=== PATIENT | female | born 1980 | race Hispanic/Latino ===

== ENCOUNTER 2025-04-14 21:47 | Emergency (ER) | payer BC ==
[~2025-04-14] VITALS: Ht 162.6 cm; Wt 85.3 kg
--- NOTE | 2025-04-14 21:50 | NUR ---
UA CUP PROVIDED
--- NOTE | 2025-04-14 22:16 | ERN ---
ED Note History of Present Illness Stated Complaint: RT LOWER ABD PAIN, N/V Chief Complaint: Abdominal Pain Time Seen by MD: 21:53 Time Seen by Midlevel: 21:53 Dictation: The patient is a 45-year-old female with a history of , abdominal plasty who presents to the emergency department with complaints of right lower abdominal pain associated with nausea nonbloody vomiting onset 7:00 p.m.. Patient denies any diarrhea, constipation, urinary discomfort, fevers. Allergies: Coded Allergies: No Known Drug Allergies (Unverified Allergy, Unknown, 04/14/25) Past Medical History Past Medical History: No Pertinent History Surgical History: Other, Surgical History Other: ABD PLASTY LMP: Mar 31, 2025 RN Note Reviewed/Agreed w/PFSH: Yes Review of System Dictation Constitutional: Negative for fever,chills, and weight loss Eyes: Negative for injury, pain,redness, and discharge ENT: Negative for injury,pain or swelling Cardiovascular: Negative for chest pain, palpitations, and edema Respiratory: Negative for shortness of breath, cough, and wheezing, Abdomen/GI: Negative for diarrhea, and constipation positive for abdominal pain, nausea, vomiting Back: Negative for injury and pain : Negative for injury, bleeding and discharge MS/Extremity: Negative for injury and deformity Skin: Negative for rash, and discoloration Neuro: Negative for headache, weakness, numbness, tingling, and seizure Psych: Negative for suicide ideation, homicidal ideation, and hallucinations Initial Vital Sign VS Vital Signs Date Time Temp Pulse Resp B/P (MAP) Pulse Ox O2 Delivery O2 Flow Rate FiO2 04/14/25 21:48 96.6 70 18 134/59 100 Room Air 04/14/25 22:15 0 21 Physical Exam Dictation Vital Signs reviewed General Appearance: Alert, oriented x 3, no acute distress, well developed, nourished. Head and Face: non-traumatic. Eyes: PERRL, pink conjunctivas, eyelid no trauma, anterior chamber with arcus senilis. Ears: Pinnas intact and no signs of trauma or erythema ear canals clear and no discharge TM no erythema Nose: No discharge, no bleeding. Oropharynx: Mouth normal, tongue pink. pharynx clear,no erythema, tonsils no exudates, no abscesses noted, mucous membrane moist Neck: Supple, non-tender, no thyromegaly, no masses, no JVD, no bruits Breast:Deferred Chest:No tenderness, no crepitus, no paradoxical movement, no retractions Lungs:Clear, well-ventilated, symmetric, no rales, no wheezing, no rhonchi, no stridor, good breath sounds bilaterally Heart: Regular rate, regular rhythm, no murmur, no gallops Vascular: no peripheral edema, Abdomen: Soft, positive bowel sounds, nondistended, no guarding, Right lower quadrant tenderness, no rebound, no masses no hepatomegaly, no splenomegaly, no Petit's sign, no hernias. Rectal: Deferred Genital: Deferred Neurological: Normal speech, motor function intact, sensory function intact Musculoskeletal: Neck nontender, full range of motion, back nontender, full range of motion, Extremities: nontender, full range of motion Skin: Color pink, dry, no turgor, no rash, no lacerations, no abrasions, no contusions. Lymphatic: Deferred Results (Laboratory/Radiology) Laboratory/Radiology Laboratory Tests Test 04/14/25 22:12 04/14/25 23:17 White Blood Count 8.2 K/uL (4.8-10.8) Red Blood Count 4.23 MIL/uL (4.00-5.50) Hemoglobin 11.4 g/dL (12.0-16.0) L Hematocrit 34.7 % (36-48) L Mean Corpuscular Volume 82.0 fL (79-99) Mean Corpuscular Hemoglobin 27.0 pg (27.0-33.0) Mean Corpuscular Hemoglobin Concent 32.9 g/dL (32.0-36.0) Red Cell Distribution Width 13.2 % (11.0-15.5) Platelet Count 369 K/uL (130-400) Mean Platelet Volume 9.7 fL (7.5-10.5) Immature Granulocyte % (Auto) 0.5 % (0-1) Neutrophils (%) (Auto) 78.4 % (40.0-77.0) H Lymphocytes (%) (Auto) 14.0 % (21.0-51.0) L Monocytes (%) (Auto) 6.4 % (3.0-13.0) Eosinophils (%) (Auto) 0.2 % (0.0-8.0) Basophils (%) (Auto) 0.5 % (0.0-5.0) Neutrophils # (Auto) 6.4 K/uL (1.8-7.7) Lymphocytes # (Auto) 1.1 K/uL (1.0-4.8) Monocytes # (Auto) 0.5 K/uL (0.1-1.0) Eosinophils # (Auto) 0.02 K/uL (0.00-0.70) Basophils # (Auto) 0.04 K/uL (0.00-0.20) Absolute Immature Granulocyte (auto 0.04 K/uL (0-1) Nucleated Red Blood Cells 0.0 % (0.0-0.19) Sodium Level 138 mmol/L (136-145) Potassium Level 3.4 mmol/L (3.5-5.1) L Chloride Level 104 mmol/L (101-111) Carbon Dioxide Level 26 mmol/L (21-32) Blood Urea Nitrogen 9 mg/dL (7-18) Creatinine 0.6 mg/dL (0.5-1.0) Glomerular Filtration Rate Calc 113 mL/min (>90) Random Glucose 120 mg/dL (70-105) H Total Calcium 8.5 mg/dL (8.5-10.1) Lipase 29 U/L (16-77) Urine Color LIGHT-YELLOW (YELLOW) Urine Appearance CLOUDY (CLEAR) H Urine pH 6.5 (5.0-8.0) Urine Specific [place] 1.020 (1.001-1.031) Urine Protein NEGATIVE mg/dL (NEGATIVE) Urine Glucose (UA) NEGATIVE mg/dL (NEGATIVE) Urine Ketones 40 mg/dL (NEGATIVE) H Urine Occult Blood +- (TRACE) (NEGATIVE) H Urine Nitrate NEGATIVE (NEGATIVE) Urine Bilirubin NEGATIVE mg/dL (NEGATIVE) Urine Urobilinogen 3 mg/dL (0.2-1.0) H Urine Leukocyte Esterase NEGATIVE Ana/uL Urine RBC 2-5 /HPF (0-1) H Urine WBC 2-5 /HPF (0-1) H Urine Squamous Epithelial Cells MOD /HPF (0-2) Urine Bacteria None /HPF (None Seen) Urine HCG, Qualitative NEGATIVE (NEGATIVE) Labs Reviewed?: Yes Ultrasound Comment: REASON: Abnormal CT, abdominal pain, ovarian mass ORDERING PHYSICIAN: MAURO NELSON PROCEDURE: PELVCOMP - US PELVIC NON-OB COMP EXAM: US Pelvis, Complete. CLINICAL HISTORY: Abnormal CT, abdominal pain, ovarian mass TECHNIQUE: Transabdominal pelvic ultrasound (complete) with image documentation. COMPARISON: CT abdomen and pelvis dated 04/14/2025. FINDINGS: The uterus measures 9 x 5.3 x 6.6 cm. The endometrial thickness measures up to 12 mm. Small anechoic fluid is present within the endometrial cavity. The right ovary is obscured by the bowel gases. The left ovary measures 2.9 x 1.6 x 2.2 cm. Normal flow in the left ovary. No free fluid in the cul-de-sac. There is a 13.8 x 8.4 x 14.3 cm midline complex cystic structure with septations and vascularity in the lower abdominal pelvic regions. IMPRESSION: There is a 13.8 x 8.4 x 14.3 cm midline complex cystic structure with septations and vascularity in the lower abdominal pelvic regions. Recommend a contrast-enhanced MRI of the pelvis for further evaluation. Small anechoic fluid is present within the endometrial cavity. No additional findings compared to the recent CT abdomen and pelvis. /[place] DICTATED BY: JUAN BOWSER Jr., MD DATE: 04/15/25420 ELECTRONICALLY SIGNED BY: JUAN BOWSER Jr., MD DATE: 04/15/25420 CT Scan Comment: REASON: Abdominal Pain, rlq abd pain ORDERING PHYSICIAN: MAURO NELSON [employer] TRACK PROCEDURE: ABD PEL W - CT ABDOMEN/PELVIS W/CONTRAST EXAM: CT Abdomen and Pelvis with IV contrast CLINICAL HISTORY: Pain. Right lower quadrant abdominal pain. TECHNIQUE: Postcontrast thin collimated axial CT images of the abdomen and pelvis were obtained with sagittal and coronal reformatted images also submitted. CT scan is done according to ALARA (As Low As Reasonably Achievable). COMPARISON: None. FINDINGS: The included lungs are clear. Mild patchy megaly and hepatic steatosis. No focal abnormality within the gallbladder, pancreas, spleen, or adrenals. Nonobstructive renal calculi bilaterally, the largest measures up to 0.4 cm at the left renal lower pole. No ureteral calculus or hydronephrosis bilaterally.. The urinary bladder is suboptimally distended with questionable mild chronic cystitis. Multiple nabothian cervical cysts. Mildly distended and fluid-filled endometrial cavity. There are complex solid cystic structures with multiple septations in the lower abdominal/pelvic region, abutting the right and left ovaries, and measuring about 8 x 13 x 12 cm. No obvious bowel wall thickening, dilatation, or obstruction. Unremarkable appendix. Grossly unremarkable abdominal vessels. No pathology for lymphadenopathy in the abdomen or pelvis. No ascites or pneumoperitoneum. No acute bony abnormality is evident. Bilateral gluteal implants in place. IMPRESSIONS: There is a complex solid cystic structure in the lower abdomen and pelvic regions, abutting the right and left ovaries, concerning ovarian neoplasm. Recommend ultrasound of the pelvis and contrast-enhanced MRI of the pelvis for further evaluation. Nabothian cervical cyst. Mildly distended and fluid-filled endometrial cavity. Questionable mild chronic cystitis. /[place] DICTATED BY: JUAN BOWSER Jr., MD DATE: 04/15/25247 ELECTRONICALLY SIGNED BY: JUAN BOWSER Jr., MD DATE: 04/15/25247 ED Course ED Course Orders Procedure Category Date Status Time Vital Signs Per CPOE 04/14/25 Transmitted Routine 21:49 Saline Lock Iv CPOE 04/14/25 Transmitted 21:49 Cbc With Differential LAB 04/14/25 Complete 21:49 Lipase LAB 04/14/25 Complete 21:49 Urinalysis Profile LAB 04/14/25 Complete 21:49 Basic Metabolic Panel LAB 04/14/25 Complete 21:49 ,Urine Test LAB 04/14/25 Complete 21:49 0.9%Nacl 1000ml (Ns PHA 04/14/25 Complete 1000ml) 22:30 Morphine 4mg Syg PHA 04/14/25 Complete (Morphine 4mg Syg) 22:30 Ondansetron 4mg Inj PHA 04/14/25 Complete (Zofran 4mg Inj) 22:30 Ct Abdomen/Pelvis CT 04/14/25 Resulted W/Contrast 23:43 Iohexol (Omnipaque) PHA 04/14/25 Complete 23:56 Us Pelvic Non-Ob Comp US 04/15/25 Resulted 01:52 Ketorolac PHA 04/15/25 Complete Tromethamine 30mg/Ml 02:30 Current Medications Medications (Trade) Dose Ordered Sig/May Route PRN Reason Start Time Stop Time Status Last Admin Dose Admin Iohexol (Omnipaque) 75 ml STK-MED ONCE IV 04/14/25 23:56 04/14/25 23:57 DC Ketorolac Tromethamine (toRADol) 30 mg ONCE ONCE IVP 04/15/25 02:30 04/15/25 02:31 DC 04/15/25 02:17 Morphine Sulfate (morPHINE 4MG SYG) 4 mg ONCE ONCE IVP 04/14/25 22:30 04/14/25 22:31 DC 04/14/25 22:33 Ondansetron HCl (zoFRAN 4MG INJ) 4 mg ONCE ONCE IVP 04/14/25 22:30 04/14/25 22:31 DC 04/14/25 22:32 Sodium Chloride 1,000 ml @ 0 mls/hr ONCE ONCE IV 04/14/25 22:30 04/14/25 22:31 DC 04/14/25 22:32 Vital Signs Date Time Temp Pulse Resp B/P (MAP) Pulse Ox O2 Delivery O2 Flow Rate FiO2 04/15/25 03:06 64 16 134/77 97 Room Air* 0 04/15/25 00:15 98.2 70 16 120/62 98 Room Air* 0 04/14/25 23:08 70 16 125/79 99 Room Air* 0 04/14/25 22:15 98.6 71 16 136/70 100 Room Air* 0 04/14/25 21:48 96.6 70 18 134/59 100 Room Air 3:00 a.m. patient was signed out to me by mid-level provider to follow up on pelvic ultrasound results. I reviewed her presentation of lower abdominal pain and low back pain. Ms. Comer reported to me that she saw her spouter in early part of the ear. She indicated that she is aware of ovarian cyst for more than 15 years. I updated her on the CT scan of the abdomen pelvis findings as well as pelvic ultrasound findings. She has bilateral nephrolithiasis ranging from 0.2-0.4 cm. And pelvic mass which is between the ovaries. This appears to be a complex ovarian cyst. There was no mention of any torsion or acute hemorrhage into the ovarian cyst. I explained to her that it is unclear if her pain is related to the ovarian cyst or the nephrolithiasis. And renal colic. I recommended pain management and tamsulosin for now and to follow up with her spouter for re-evaluation of the ovarian cyst and she verbalized full understanding Medical Decision Making MDM The patient is a 45-year-old female with a history of , abdominal plasty who presents to the emergency department with complaints of right lower abdominal pain associated with nausea nonbloody vomiting onset 7:00 p.m.. Patient denies any diarrhea, constipation, urinary discomfort, fevers. Differential diagnosis: Appendicitis, urinary tract infection, gastroenteritis, dehydration Need for hospitalization: Patient does not meet criteria for hospitalization. There are no social concerns with this patient. Problem List Problem List: (1) Bilateral nephrolithiasis (2) Renal colic (3) Complex ovarian cyst DX & DISP Disposition: Discharge Departure Impression: Primary Impression: Bilateral nephrolithiasis Additional Impressions: Renal colic, Complex ovarian cyst Condition: Stable Scripts Acetaminophen with Codeine (Acetaminophen-Cod #3 Tablet) 300 Mg-30 Mg Tablet 1 TAB PO TIDP PRN for pain for 5 Days, #15 TAB 0 Refills Prov: AARON FRIEDMAN MD 04/15/25 Tamsulosin HCl (Flomax) 0.4 Mg Cap.er.24h 1 CAP PO DAILY for 10 Days, #10 CAP 0 Refills Prov: AARON FRIEDMAN MD 04/15/25 Additional Instructions: Patient and the caregiver have been informed of all the diagnostic tests and the imaging conducted during the today's visit to the emergency room and has verbalized understanding of the results I have personally reviewed and interpreted all diagnostic exams performed here in the ER today as well as the vital signs documented by the nursing staff. The patient is now being discharged to home and should follow up with the primary care physician or the specialist as directed by the ER staff. Follow-up with primary care provider in 1 to 2 days. Take medications as direct ed here in the emergency room. Okay to continue home medications unless otherwise discussed during your visit in the emergency room today. Return to your nearest emergency room if symptoms worsen or if there is no improvement. Call 911 if you need immediate assistance. Take Tylenol or Motrin [id number] as needed and if no contraindications are present. Increase oral hydration. A wound culture or urine culture was ordered here in the emergency room department please follow-up with primary care provider and advise them to get repeat ports from our facility. If you had any Steve wrap/splints that were applied here, please do not remove them until you see your primary care or specialty. Referrals: RISHABH JUNE MD (PCP) MAURO NELSON Apr 14, 2025 22:16 AARON FRIEDMAN MD Apr 15, 2025 03:53
[2025-04-14 22:25] LABS: IMMATURE GRANULOCYTE ABSOLUTE 0.04 K/uL (0-1); NUCLEATED RED BLOOD CELLS 0.0 % (0.0-0.19); PLATELET COUNT (AUTO) 369 K/uL (130-400); RED BLOOD CELL COUNT(AUTO) 4.23 MIL/uL (4.00-5.50); RED CELL DISTRIBUTION WIDTH 13.2 % (11.0-15.5); WHITE BLOOD COUNT (AUTO) 8.2 K/uL (4.8-10.8)
[2025-04-14] MEDS: 0.9%NACL 1000ML 1,000 ML IV ONE (22:32)
[2025-04-14 22:36] LABS: CREATININE 0.6 mg/dL (0.5-1.0); GLOMERULAR FILTR. RATE CALC 113.0 mL/min (>90); GLUCOSE,RANDOM 120.0 mg/dL (70-105); SODIUM SERUM 138.0 mmol/L (136-145); UREA NITROGEN, BLOOD 9.0 mg/dL (7-18)
[2025-04-14 23:36] LABS: APPEARANCE,URINE CLOUDY (CLEAR); GLUCOSE, URINE (UA) NEGATIVE (NEGATIVE); LEUKOCYTE ESTERASE ,URINE NEGATIVE Leu/uL (NEGATIVE); NITRATE,URINE NEGATIVE (NEGATIVE); OCCULT BLOOD,URINE +- (TRACE) (NEGATIVE)
[2025-04-14 23:37] LABS: ADD UA MICROSCOPIC YES
[2025-04-14 23:38] LABS: HCG,QUALITATIVE URINE NEGATIVE (NEGATIVE)
[2025-04-14 23:39] LABS: SQUAMOUS EPITHELIAL CELL,UR MOD /HPF (0-2)
[2025-04-14] MEDS ORDERED: IOHEXOL-350 75 ML VIAL IV ONE (23:56)
[2025-04-15 00:15] VITALS: TEMP 98.2
--- NOTE | 2025-04-15 01:48 | HMCIMG ---
EXAM: CT Abdomen and Pelvis with IV contrast CLINICAL HISTORY: Pain. Right lower quadrant abdominal pain. TECHNIQUE: Postcontrast thin collimated axial CT images of the abdomen and pelvis were obtained with sagittal and coronal reformatted images also submitted. CT scan is done according to ALARA (As Low As Reasonably Achievable). COMPARISON: None. FINDINGS: The included lungs are clear. Mild patchy megaly and hepatic steatosis. No focal abnormality within the gallbladder, pancreas, spleen, or adrenals. Nonobstructive renal calculi bilaterally, the largest measures up to 0.4 cm at the left renal lower pole. No ureteral calculus or hydronephrosis bilaterally.. The urinary bladder is suboptimally distended with questionable mild chronic cystitis. Multiple nabothian cervical cysts. Mildly distended and fluid-filled endometrial cavity. There are complex solid cystic structures with multiple septations in the lower abdominal/pelvic region, abutting the right and left ovaries, and measuring about 8 x 13 x 12 cm. No obvious bowel wall thickening, dilatation, or obstruction. Unremarkable appendix. Grossly unremarkable abdominal vessels. No pathology for lymphadenopathy in the abdomen or pelvis. No ascites or pneumoperitoneum. No acute bony abnormality is evident. Bilateral gluteal implants in place. IMPRESSIONS: There is a complex solid cystic structure in the lower abdomen and pelvic regions, abutting the right and left ovaries, concerning ovarian neoplasm. Recommend ultrasound of the pelvis and contrast-enhanced MRI of the pelvis for further evaluation. Nabothian cervical cyst. Mildly distended and fluid-filled endometrial cavity. Questionable mild chronic cystitis. /[place]
--- NOTE | 2025-04-15 03:16 | HMCIMG ---
EXAM: US Pelvis, Complete. CLINICAL HISTORY: Abnormal CT, abdominal pain, ovarian mass TECHNIQUE: Transabdominal pelvic ultrasound (complete) with image documentation. COMPARISON: CT abdomen and pelvis dated 04/14/2025. FINDINGS: The uterus measures 9 x 5.3 x 6.6 cm. The endometrial thickness measures up to 12 mm. Small anechoic fluid is present within the endometrial cavity. The right ovary is obscured by the bowel gases. The left ovary measures 2.9 x 1.6 x 2.2 cm. Normal flow in the left ovary. No free fluid in the cul-de-sac. There is a 13.8 x 8.4 x 14.3 cm midline complex cystic structure with septations and vascularity in the lower abdominal pelvic regions. IMPRESSION: There is a 13.8 x 8.4 x 14.3 cm midline complex cystic structure with septations and vascularity in the lower abdominal pelvic regions. Recommend a contrast-enhanced MRI of the pelvis for further evaluation. Small anechoic fluid is present within the endometrial cavity. No additional findings compared to the recent CT abdomen and pelvis. /[place]
[2025-04-15] MEDS ORDERED: TAMS-55 PO (03:45)
[2025-04-15] MEDS ORDERED: ACET-2079 PO (03:45)
[2025-04-15 04:10] VITALS: BP 106/64; PULSE 71; RESP 16; O2SAT 97
== END 2025-04-15 04:11 | disposition home or self-care (01) ==
LOC: EDH 21:47
DX: N20.0 Calculus of kidney (principal); N83.292 Other ovarian cyst, left side; N83.291 Other ovarian cyst, right side
CPT/HCPCS: 99285; 74177; 96374; 96375 ×3; 80048; 83690; 85025; 81001; 81025; 36415; 76856; J7030; J2405; J2270; Q9967; J1885; J1171